=== PATIENT | female | born 1970 | race Caucasian/White ===

== ENCOUNTER → 2022-01-23 | Outpatient (CLI) | payer OTHER | LOC: M WHC 15:32 | PROVIDERS: ATTEND Nurse Practitioner Family | DX: Z12.31 Encounter for screening mammogram for malignant neoplasm of breast (principal) ==

== ENCOUNTER 2022-06-20 21:06 | Emergency (ER) | payer OTHER ==
[~2022-06-20] VITALS: Ht 162.6 cm; Wt 100.0 kg
[2022-06-21] MEDS ORDERED: ISOVUE-370 76% 100ML VIAL As Ordered ONE ×2 (02:26→03:37)
[2022-06-21 02:43] LABS: ERYTHROCYTE SEDIMENTATION RATE 21 mm/hr (0-30)
[2022-06-21 02:45] LABS: BASO # 0.1 10^3/uL (0.0-0.2); BASO % 0.8 % (0.0-1.0); EOS # 0.4 10^3/uL (0.0-0.5); EOS % 3.7 % (0.0-3.0); HEMATOCRIT 44.8 % (36.0-47.0); HEMOGLOBIN 14.8 g/dl (12.0-15.5); LYMPH # 4.1 10^3/uL (1.5-5.0); LYMPH % 34.8 % (24.0-44.0); MEAN CORPUSCULAR HEMOGLOBIN 28.5 pg (27.0-33.0); MEAN CORPUSCULAR VOLUME 86.2 fl (80.0-96.0); MONO # 0.8 10^3/uL (0.0-0.8); MONO % 6.6 % (2.0-8.0); NEUTROPHILS # 6.3 10^3/uL (1.5-8.5); NEUTROPHILS % 53.9 % (36.0-66.0); PLATELET COUNT, AUTOMATED 311 10^3/uL (150-450); WHITE BLOOD COUNT 11.8 10^3/uL (4.0-10.0)
[2022-06-21 02:46] LABS: BLOOD UREA NITROGEN 15 MG/DL (7-18); CARBON DIOXIDE LEVEL 29 mmol/L (20-29); CHLORIDE LEVEL 102 MEQ/L (98-107); CREATININE FOR GFR 0.93 MG/DL (0.55-1.30); GLOMERULAR FILTRATION RATE > 60.0 (>51); GLUCOSE, FASTING 104 MG/DL (70-100); POTASSIUM SERUM 3.8 MEQ/L (3.5-5.1); SODIUM LEVEL 134 MEQ/L (136-145)
[2022-06-21 02:47] LABS: C REACTIVE PROTEIN QUANTITATIV 1.73 MG/DL (0.00-0.30); CALCIUM LEVEL 9.4 MG/DL (8.5-10.1)
[2022-06-21] MEDS ORDERED: ONDANSETRON 4MG 2ML VIAL As Ordered ONE (03:06)
[2022-06-21] MEDS ORDERED: MORPHINE 2 MG/ML 1ML VIAL As Ordered ONE (03:06)
[2022-06-21] MEDS ORDERED: CIPRODEX OTIC SUSP 7.5ML AS SCH ×2 (04:45→06:00)
[2022-06-21] MEDS ORDERED: LevoFLOXacin IV 750 MG in IV 1 EA IV ONE (04:45)
[2022-06-21] MEDS ORDERED: CIPR7.5D5 AS (05:18)
[2022-06-21] MEDS ORDERED: LEVO750T14 PO (05:18)
[2022-06-21] MEDS ORDERED: TRAM50TA2 PO (05:20)
[2022-06-21 06:48] VITALS: BP 120/81
== END 2022-06-21 06:52 | disposition home or self-care (01) ==
LOC: M ED 21:06
DX: L03.211 Cellulitis of face (principal); H60.90 Unspecified otitis externa, unspecified ear; E11.9 Type 2 diabetes mellitus without complications; F41.9 Anxiety disorder, unspecified; Z86.16 Personal history of COVID-19; Z86.010 Personal history of colon polyps; Z91.030 Bee allergy status; Z88.8 Allergy status to other drugs, medicaments and biological substances; Z79.899 Other long term (current) drug therapy
CPT/HCPCS: 70486; 80048; 85025; 85652; 86140; 87040; 96365; 96366; 99283; J1956; Q9967

== ENCOUNTER → 2023-02-14 | Outpatient (CLI) | payer OTHER ==
[~2023-02-14] MED LIST: CIPR7.5D5 AS; LEVO750T14 PO; TRAM50TA2 PO
== END ==
LOC: M WHC 13:28
PROVIDERS: ATTEND Registered Nurse
DX: Z12.39 Encounter for other screening for malignant neoplasm of breast (principal)

== ENCOUNTER 2023-03-20 10:06 | Day surgery (SDC) | payer OTHER ==
[~2023-03-20] VITALS: Ht 162.6 cm; Wt 107.5 kg
[~2023-03-20 10:06] MED LIST changes: +ACET1TAB55 PO; +ALPR0.5T3 PO; +BUPR-364 PO; +CYCL-707 PO; +DOXE10CA PO; +EPIP0.3I2 IJ; +GLUC1KIT IM; +HYDR12CA PO; +LEXA1TAB2 PO; +LIDOCAINE 2% 100MG/5ML SDV (FOR ANES.) As Ordered ONE; +LORA-622 PO; +MECL-86 PO; +METO200T28 PO; +NS 1,000 ML IV ONE; +PROA1AER2 IH; +ROSU10TA6 PO; +SUMA6CAR SC; +TRAZ-252 PO; +propofoL 200 MG/20 ML VIAL As Ordered ONE
[2023-03-20 11:47] VITALS: TEMP 97.2
[2023-03-20 12:12] VITALS: BP 140/89; O2SAT 98
== END 2023-03-20 12:20 | disposition home or self-care (01) ==
LOC: M OPP 10:06
PROVIDERS: ATTEND Surgery
DX: Z12.11 Encounter for screening for malignant neoplasm of colon (principal); Z86.010 Personal history of colon polyps; D12.2 Benign neoplasm of ascending colon; K64.0 First degree hemorrhoids; Z79.02 Long term (current) use of antithrombotics/antiplatelets; Z79.51 Long term (current) use of inhaled steroids; Z79.891 Long term (current) use of opiate analgesic; Z79.899 Other long term (current) drug therapy; Z88.6 Allergy status to analgesic agent; Z88.8 Allergy status to other drugs, medicaments and biological substances; Z91.048 Other nonmedicinal substance allergy status; Z91.030 Bee allergy status

== ENCOUNTER → 2023-09-19 | Outpatient (REF) | payer OTHER ==
[~2023-09-19] MED LIST changes: -LIDOCAINE 2% 100MG/5ML SDV (FOR ANES.) As Ordered ONE; -NS 1,000 ML IV ONE; -propofoL 200 MG/20 ML VIAL As Ordered ONE
== END ==
LOC: M SFHCDERM 18:13
PROVIDERS: ATTEND Nurse Practitioner Family
DX: L57.0 Actinic keratosis (principal)